=== PATIENT | female | born 1955 | race Two or more races ===

== ENCOUNTER 2021-06-09 08:10 | Outpatient (CLI) | payer OTHER | END 2021-06-09 09:00 | disposition home or self-care (01) | LOC: NUCLEAR 08:10 | PROVIDERS: ATTEND Internal Medicine | DX: E78.00 Pure hypercholesterolemia, unspecified (principal); I10 Essential (primary) hypertension; Z86.79 Personal history of other diseases of the circulatory system; I50.1 Left ventricular failure, unspecified; Z09 Encounter for follow-up examination after completed treatment for conditions other than malignant neoplasm | CPT/HCPCS: 78452; 93017; A9500; J0153 ==